=== PATIENT | female | born 2005 | race Caucasian/White ===

== ENCOUNTER 2024-03-05 11:43 | Outpatient (REF) | payer OTHER, SELFPAY ==
[2024-03-05 12:13] LABS: MANUAL DIFF FLAG NO
[2024-03-05 12:58] LABS: Basophils Absolute Auto 0.1 X10*3/uL (0.0-0.2); Basophils Percent Auto 0.9 % (0-2); Eosinophils Absolute Auto 0.1 X10*3/uL (0.0-0.4); Eosinophils Percent Auto 0.9 % (0-4); Hematocrit 39.5 % (37.0-47.0); Hemoglobin 13.1 g/dl (12.0-16.0); Imm Gran Abs Auto 0.01 X10*3/uL (0.00-0.03); Imm Gran Pct Auto 0.2 % (0.0-0.4); Lymphocytes Absolute Auto 1.9 X10*3/uL (1.2-4.9); Lymphocytes Percent Auto 32.4 % (20-40); Mean Corpuscular HGB Conc 33.2 g/dl (31.0-35.0); Mean Corpuscular Hemoglobin 28.2 pg (27.0-33.0); Mean Corpuscular Volume 84.9 fL (80.0-98.0); Mean Platelet Volume 9.2 fL (9.4-12.3); Monocytes Absolute Auto 0.4 X10*3/uL (0.1-1.2); Monocytes Percent Auto 7.1 % (2-11); Neutrophils Absolute Auto 3.4 x10*3/uL (2.0-8.3); Neutrophils Percent Auto 58.5 % (45-73); Platelet Count 309 X10*3/uL (160-400); Red Blood Count 4.65 X10*6/uL (4.20-5.50); Red Cell Distribution Width 13.3 % (11.0-16.0); White Blood Count 5.7 X10*3/uL (4.8-10.8)
== END 2024-03-05 11:44 | disposition home or self-care (01) ==
LOC: HO.LAB 11:43
PROVIDERS: PCP Internal Medicine; Visit Provider Internal Medicine
DX: Z00.01 Encounter for general adult medical examination with abnormal findings (principal); F32.2 Major depressive disorder, single episode, severe without psychotic features; F42.8 Other obsessive-compulsive disorder; N94.6 Dysmenorrhea, unspecified
CPT/HCPCS: 36415; 84443; 85025

== ENCOUNTER 2024-06-11 11:45 | Outpatient (REF) | payer OTHER, SELFPAY ==
--- NOTE | ~2024-06-11 | XR_ITS ---
EXAMINATION: XR HIP, LEFT CLINICAL INFORMATION: LT HIP PAIN COMPARISON: None available. TECHNIQUE: Two views of the left hip. FINDINGS: No fracture. Alignment is anatomic. Hip joint space is maintained. Normal acetabular coverage. Soft tissues are unremarkable. XR/XR hip LT min 2V IMPRESSION: Normal left hip. Electronically signed by: Taqueria Phan MD 06/11/2024 03:00 PM [facility] [place]
== END 2024-06-11 11:46 | disposition home or self-care (01) ==
LOC: HO.XRAY 11:45
PROVIDERS: PCP Internal Medicine; Visit Provider Internal Medicine
DX: M25.552 Pain in left hip (principal)
CPT/HCPCS: 73502

== ENCOUNTER → 2024-06-11 11:50 | Outpatient (BNV) | payer OTHER, SELFPAY | PROVIDERS: PCP Internal Medicine; Visit Provider Radiology Diagnostic Radiology | DX: M25.552 Pain in left hip (principal) | CPT/HCPCS: 73502 ==